=== PATIENT | female | born 1995 | race Caucasian/White ===

== ENCOUNTER 2021-09-13 00:22 | Day surgery (SDC) | payer MEDICAID, OTHER ==
[2021-09-13 00:44] VITALS: BMI 33.2
[2021-09-13] MEDS ORDERED: hydrALAZINE 20 MG/ML VIAL SLOW IVP PRN (01:39)
== END 2021-09-13 03:20 | disposition home or self-care (01) ==
LOC: CSHLD/OP 00:22
PROVIDERS: ATTEND Family Medicine
DX: O47.1 False labor at or after 37 completed weeks of gestation (principal); Z3A.38 38 weeks gestation of pregnancy
CPT/HCPCS: 99283